=== PATIENT | female | born 1995 | race Caucasian/White ===

== ENCOUNTER 2022-05-21 13:54 | Emergency (ER) | payer SELFPAY ==
[~2022-05-21] VITALS: Ht 165.1 cm; Wt 74.8 kg
[2022-05-21 14:02] VITALS: BP 120/75
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
[2022-05-21] MEDS ORDERED: IBUPROFEN 600 MG TAB PO ONE (15:45)
[2022-05-21] MEDS ORDERED: BACITRACIN OINT 500 UNITS/GM PKT TP ONE (15:45)
[2022-05-21] MEDS ORDERED: AMOX1TAB8 PO (16:28)
[2022-05-21] MEDS ORDERED: IBUP-2213 PO (16:28)
[2022-05-21] MEDS ORDERED: BACI-416 TP (16:28)
--- NOTE | 2022-05-21 16:41 | NUR ---
Patient discharged with v/s stable. Written and verbal after care instructions given and explained. Patient alert, oriented and verbalized understanding of instructions. Ambulatory with steady gait. All questions addressed prior to discharge. ID band removed. Patient advised to follow up with PMD. Rx of AMOXICILLIN/POTASSIUM, BACITRACIN ZINC, IBUPROFEN given. Opportunity to ask questions provided and answered.
--- NOTE | 2022-05-21 16:42 | NUR ---
The patient's care was reviewed and supervised by Jovita Collier, RN, RN.
== END 2022-05-21 16:39 | disposition home or self-care (01) ==
LOC: MED 13:54
DX: S21.151A Open bite of right front wall of thorax without penetration into thoracic cavity, initial encounter (principal); S60.222A Contusion of left hand, initial encounter; S80.211A Abrasion, right knee, initial encounter; S80.212A Abrasion, left knee, initial encounter; S70.212A Abrasion, left hip, initial encounter; Z79.899 Other long term (current) drug therapy; W54.0XXA Bitten by dog, initial encounter; Y93.89 Activity, other specified; Y92.89 Other specified places as the place of occurrence of the external cause; Y99.8 Other external cause status
CPT/HCPCS: 73130; 90471; 90715; 99283